=== PATIENT | male | born 1990 | race Caucasian/White ===

== ENCOUNTER 2022-07-20 11:38 | Outpatient (CLI) | payer OTHER, SELFPAY ==
[2022-07-20 14:51] LABS: Chloride* 101 mmol/L (96-114)
[2022-07-20 14:52] LABS: Albumin* 4.5 g/dL (3.3-5.0); Potassium* 4.6 mmol/L (3.6-5.1); Sodium* 139 mmol/L (135-149)
[2022-07-20 14:54] LABS: Cholesterol* 175 mg/dL (90-199); Creatinine* 0.8 mg/dL (0.5-1.5); Estimated Glomerular Filt Rate 121 ml/min
[2022-07-20 14:55] LABS: Alanine Aminotransferase* 49 U/L (4-50); Alkaline Phosphatase* 62 U/L (40-150); Aspartate Amino Transferase* 33 U/L (12-35); Bilirubin Total* 1.1 mg/dL (0.1-1.5); Blood Urea Nitrogen* 19 mg/dL (5-24); Carbon Dioxide* 32 mmol/L (20-32); Glucose* 95 mg/dL (60-115); Total Protein* 7.5 g/dL (6.0-8.3); Triglycerides* 135 mg/dL (40-149)
[2022-07-20 14:56] LABS: Calcium* 9.4 mg/dL (8.4-10.6); HDL Cholesterol* 48 mg/dL (>=40); LDL Cholesterol Calculated 100 mg/dL (<100)
== END 2022-07-20 11:39 | disposition home or self-care (01) ==
LOC: NFLDLAB 11:38
PROVIDERS: PCP Family Medicine; Visit Provider Family Medicine
DX: E78.5 Hyperlipidemia, unspecified (principal)
CPT/HCPCS: 36415; 80053; 80061

== ENCOUNTER 2022-08-24 13:48 | Outpatient (CLI) | payer OTHER, SELFPAY | END 2022-08-24 13:49 | disposition home or self-care (01) | PROVIDERS: PCP Family Medicine; Visit Provider Family Medicine | DX: R30.0 Dysuria (principal); Z11.3 Encounter for screening for infections with a predominantly sexual mode of transmission | CPT/HCPCS: 87086; 87491; 87591 ==